=== PATIENT | male | born 1975 | race Caucasian/White ===

== ENCOUNTER 2018-02-06 13:58 | Emergency (ER) | payer BC, OTHER ==
--- NOTE | 2018-02-06 15:29 | RAD REPORT ---
EXAM DESCRIPTION: RAD - Shoulder Right 2 View - 02/06/2018 2:50 pm CLINICAL HISTORY: Right shoulder pain status post fall FINDINGS: No fracture or dislocation is seen.
--- NOTE | 2018-02-06 16:15 | ER ---
Nurse's Notes [facility] Name: Lokesh Campuzano Jr Age: 42 yrs Sex: Male : 1975 Arrival Date: 02/06/2018 Time: 14:04 Bed 10 Private MD: Diagnosis: Pain in left shoulder Presentation: 02/06 14:22 Presenting complaint: Patient states: railling broke on porch, causing patient to fall aa5 onto R shoulder approx 4 feet three hours ago. Decreased ROM noted to R shoulder. Transition of care: patient was not received from another setting of care. Onset of symptoms was February 06, 2018. Risk Assessment: Do you want to hurt yourself or someone else? Patient reports no desire to harm self or others. Initial Sepsis Screen: Does the patient meet any 2 criteria? No. Patient's initial sepsis screen is negative. Does the patient have a suspected source of infection? No. Patient's initial sepsis screen is negative. Care prior to arrival: None. 14:22 Method Of Arrival: Ambulatory aa5 14:22 Acuity: RACHAEL 2 aa5 16:03 Acuity: RACHAEL 4 ss Triage Assessment: 14:24 General: Appears in no apparent distress. Neuro: Level of Consciousness is awake, aa5 alert. Respiratory: Airway is patent Respiratory effort is even, unlabored, Denies cough, shortness of breath pain with respiration. 15:56 General: Behavior is calm, cooperative. Musculoskeletal: Range of motion: limited in ss right shoulder. Historical: - Allergies: 14:23 No Known Allergies; aa5 - Home Meds: 14:23 None [Active]; aa5 - PMHx: 14:23 None; aa5 - PSHx: 14:23 None; aa5 - Immunization history:: Adult Immunizations unknown. - Social history:: Smoking status: Patient uses tobacco products, smokes one pack cigarettes per day. - Ebola Screening: : Patient denies exposure to infectious person Patient denies travel to an Ebola-affected area in the 21 days before illness onset. Screenin:56 Abuse screen: Denies threats or abuse. Denies injuries from another. Nutritional ss screening: No deficits noted. Tuberculosis screening: Never had TB. Fall Risk Fall in past 12 months (25 points). No secondary diagnosis (0 pts). No IV (0 pts). Ambulatory Aid- None/Bed Rest/Nurse Assist (0 pts). Assessment: 15:56 General: Appears uncomfortable, Behavior is calm, cooperative. Neuro: Level of ss Consciousness is awake, alert, obeys commands, Oriented to person, place, time, situation, Speech is normal. Cardiovascular: Patient's skin is warm and dry. Respiratory: Airway is patent Trachea midline Respiratory effort is even, unlabored, Respiratory pattern is regular, symmetrical, Breath sounds are clear bilaterally. Derm: Skin is intact, is healthy with good turgor, Skin is dry, Skin is pink, warm \T\ dry. normal. Musculoskeletal: Range of motion: limited in right shoulder Swelling absent. Vital Signs: 14:23 BP 155 / 127; Pulse 115; Resp 17; Temp 99.0(TE); Pulse Ox 95% on R/A; Weight 104.33 kg; aa5 Height 6 ft. 1 in. (185.42 cm); Pain 3/10; 15:56 BP 153 / 93; Pulse 98; Resp 16; ss 14:23 Body Mass Index 30.34 (104.33 kg, 185.42 cm) aa5 ED Course: 14:04 Patient arrived in ED. sb2 14:23 Triage completed. aa5 14:23 Arm band placed on right wrist. aa5 14:49 XRAY Shoulder RIGHT 2 view In Process Unspecified. EDMS 14:51 X-ray completed. Portable x-ray completed in exam room. Patient tolerated procedure kp1 well. 15:56 Patient has correct armband on for positive identification. Bed in low position. Call ss light in reach. Adult w/ patient. 16:02 Jaya Ashley MD is Attending Physician. kdr 16:30 Franny Henson, KARUNA is Primary Nurse. ss 16:34 No provider procedures requiring assistance completed. Patient did not have IV access ss during this emergency room visit. 16:35 Sling applied to right arm. ss Administered Medications: 16:34 Drug: [place] 10 mg-325 mg 1 tabs Route: PO; ss 16:40 Follow up: Response: Medication administered at discharge. ss Outcome: 16:14 Discharge ordered by . kdr 16:45 Patient left the ED. ss 16:45 Discharged to home ambulatory, with family. ss 16:45 Condition: good 16:45 Discharge instructions given to patient, family, Instructed on discharge instructions, follow up and referral plans. medication usage, Demonstrated understanding of instructions, follow-up care, medications, Prescriptions given X 1. Signatures: Dispatcher [employer] EDMS Jaya Ashley MD MD kdr Calderon, Audri RN RN aa5 Franny Henson RN RN Katie Thurston 1 Rachel Ndiaye sb2 Corrections: (The following items were deleted from the chart) 14:25 14:22 Acuity: RACHAEL 3 aa5 aa5
--- NOTE | 2018-02-06 16:15 | EDPHYS ---
Physician Documentation [facility] Name: Lokesh Campuzano Jr Age: 42 yrs Sex: Male : 1975 Arrival Date: 02/06/2018 Time: 14:04 Bed 10 Private MD: ED Physician Jaya Ashley Historical: - Allergies: 02/06 14:23 No Known Allergies; aa5 - Home Meds: 14:23 None [Active]; aa5 - PMHx: 14:23 None; aa5 - PSHx: 14:23 None; aa5 - Immunization history:: Adult Immunizations unknown. - Social history:: Smoking status: Patient uses tobacco products, smokes one pack cigarettes per day. - Ebola Screening: : Patient denies exposure to infectious person Patient denies travel to an Ebola-affected area in the 21 days before illness onset. Vital Signs: 14:23 BP 155 / 127; Pulse 115; Resp 17; Temp 99.0(TE); Pulse Ox 95% on R/A; Weight 104.33 kg; aa5 Height 6 ft. 1 in. (185.42 cm); Pain 3/10; 15:56 BP 153 / 93; Pulse 98; Resp 16; ss 14:23 Body Mass Index 30.34 (104.33 kg, 185.42 cm) aa5 MDM: 16:14 Patient medically screened. kdr 02/06 14:25 Order name: XRAY Shoulder RIGHT 2 view; Complete Time: 16:02 aa5 02/06 16:12 Order name: Sling; Complete Time: 16:34 kdr Administered Medications: 16:34 Drug: [place] 10 mg-325 mg 1 tabs Route: PO; ss 16:40 Follow up: Response: Medication administered at discharge. ss Disposition: 02/06/18 16:14 Discharged to Home. Impression: Pain in left shoulder. - Condition is Stable. - Discharge Instructions: Arthralgia, Musculoskeletal Pain, Shoulder Pain. - Prescriptions for Tylenol- Codeine #3 300-30 mg Oral Tablet - take 2 tablets by ORAL route every 6 hours As needed; 15 tablet. - Medication Reconciliation Form, Thank You Letter, Antibiotic Education, Prescription Opioid Use form. - Follow up: Private Physician; When: 2 - 3 days; Reason: If symptoms return, Further diagnostic work-up, Recheck today's complaints, Continuance of care, Re-evaluation by your physician. - Problem is new. - Symptoms have improved. Addendum: 02/23/2018 16:41 Addendum: CC: Right shoulder pain HPI: The patient states that she fell off of her k brianch onto her right shoulder about 3 hours ago about three feet . Addendum: ROS: Const: No fever, chills or weight loss Eyes: no visual changes or c/o, Neck: no pain or injury, CV: no CP or palpitations, Resp: no SOB, cough or congestion, Abd: no n/v/d or pain, Back: no pain or injury, : no pain or bleeding, MS/Ext: no swelling, tingling, but she does have focal pain in her right shoulder especially around the AC joint. Skin: no lacerations, pain, injury, skin turgor good, Neuro: CN grossly intact and no other deficits, Psych: Appropriate for age, Allergy/Immunology: no rashes or other s/s, Endo: no evidence of polyuria, polydipsia, temperature control or other s/s . Addendum: Exam: Const: WDWN WM in wild distress, Head/Face: no injury, pain or deformity, Eyes: PERRLA, ENT: no pain, injury or bleeding, Neck: no pain, injury or deformity, full ROM Chest/Axilla: No pain, injury or deformity, CV: no rubs, gallops, murmurs, regular rate, Resp: CTAB, regular rate, Abd/GI: soft, NT, BS present in all quads and normal, Back: no injury or deformity, full ROM, MS/Extremity: no injury or deformity, FROM, distal pulses good and equal, Skin: no rashes, ecchymosis skin turgor good, Neuro: CN grossly intact, no other neuro deficits, Psych: appropriate for age, no SI/HI, no depression . 16:42 Addendum: MDM (Discharge) All VS and nursing notes reviewed. The patient was counseled guanaco escudero on the results and need for follow-up. The patient was discharged in stable condition. They were happy with the care they received and the plan for d/c and follow-up. . Signatures: Dispatcher [employer] EDJaya Cheung MD MD kdr Calderon, Audri RN RN aa5 Franny Henson, KARUNA RN ss Corrections: (The following items were deleted from the chart) 02/06 16:45 16:14 02/06/2018 16:14 Discharged to Home. Impression: Pain in left shoulder. Condition ss is Stable. Forms are Medication Reconciliation Form, Thank You Letter, Antibiotic Education, Prescription Opioid Use. Follow up: Private Physician; When: 2 - 3 days; Reason: If symptoms return, Further diagnostic work-up, Recheck today's complaints, Continuance of care, Re-evaluation by your physician. Problem is new. Symptoms have improved. kdr
[2018-02-06] MEDS ORDERED: HYDROCODONE/APAP 10/325 TAB ONE (16:33)
== END 2018-02-06 16:45 | disposition home or self-care (01) ==
LOC: ER 13:58
DX: M25.512 Pain in left shoulder (principal); F17.210 Nicotine dependence, cigarettes, uncomplicated
CPT/HCPCS: 99284